=== PATIENT | male | born 1950 | race Caucasian/White ===

== ENCOUNTER 2020-06-08 10:02 | Day surgery (SDC) | payer MEDICARE, BC, SELFPAY ==
[2020-06-06 11:11] VITALS: BMI 33.7
[2020-06-08 10:40] VITALS: BP 139/99; PULSE 87; RESP 18; TEMP 36.2; O2SAT 95
[2020-06-08] MEDS: sodium chloride 0.9% 1,000 ML 30 ML IV (10:49)
[2020-06-08 10:55] LABS: Glucose Point of Care 126 mg/dL (70-110)
--- NOTE | 2020-06-08 11:37 | ANES.PREANE2 ---
Pre-Anesthetic Assessment Pre-Anesthetic Assessment: Height/Weight: Height 1.78 m Weight 106.594 kg Temp Pulse Resp BP Pulse Ox 97.2 F L 87 18 139/99 95 06/08/20 10:40 06/08/20 10:40 06/08/20 10:40 06/08/20 10:40 06/08/20 10:40 Preop Diagnosis: Screening colonoscopy Proposed Procedure: Operation Date: 06/08/20 11:45 Proposed Procedures p Colonoscopy 69819/Z86.010(Not Applicable) - Kamran Qureshi MD Was Beta Rachana taken within 24 hours: N/A Last intake: Intake Last Liquid Date 06/07/20 Last Liquid Time 23:00 Last Solid Date 06/06/20 Last Solid Time 10:00 Social: Social History: No alcohol and No tobacco Exam: Pre-Anes Outpt Exam: alert, oriented x 3, clear to auscultation bilaterally and regular rate & rhythm Airway: Submandibular: WNL Cervical ROM: WNL MP: 1 Pulmonary: Pulmonary: None reported CV/HEM: CV/HEM: HTN : : None reported Hepatic: Hepatic: None reported GI: GI: GERD Metabolic: Metabolic: DM Musc/skel: Musc/skel: None reported Neuropsych: Neuropsych: None reported Anesthetic Plan: ASA status: 2 Anesthesia: MAC Meds/Allergies Current Medications: Current Medications Generic Name Dose Route Start Last Admin Trade Name Freq PRN Reason Stop Dose Admin Sodium Chloride 1,000 mls @ 30 ml s/hr 06/08/20 10:30 06/08/20 10:49 Sodium Chloride 0.9% IV 06/09/20 10:29 30 mls/hr .Q24H JOANNA Administration PFSH Anesthesia PFSH: Medical History (Updated 05/05/20 @ 16:30 by Kamran Qureshi MD) BPH (benign prostatic hyperplasia) Diabetes History of colon polyps History of malignant neoplasm of skin melanoma Osteoarthritis Peptic disease Seborrheic keratosis Surgical History History of appendectomy History of colonoscopy with polypectomy History of partial colectomy (~2007) History of transurethral resection of prostate (~2015) Family History Grandfather CAD (coronary artery disease) Other Cancer Denies family history of Diabetes Anesthesia complication Bleeding disorder Social History Smoking and tobacco status: never smoked Second hand smoke exposure: No Alcohol intake: never Adopted: No Caregiver/support person: Yes Lives independently: Yes Housing: House Marital status: Single Highest education level completed: GED or Equivalent service: No Current occupational status: retired Current occupational exposures/hazards: No Pets and animals: No History of recent travel: No Sexually active: No Current gender identity: Male Data Anesthesia Other Labs: Laboratory Results - last 48 hr 06/08/20 10:49 POC Glucose 126 Cardiac Studies: No Data to Display
--- NOTE | 2020-06-08 11:38 | P.HP_ITS ---
Same Day Surgery H&P Indication for Procedure/HPI DATE OF PROCEDURE: June 08, 2020 CHIEF COMPLAINT/INDICATIONFOR SURGICAL PROCEDURE: I am here for colonoscopy PREOP DIAGNOSIS: Screening colonoscopy PLANNED PROCEDRUE: Operation Date: 06/08/20 11:45 Proposed Procedures p Colonoscopy 82001/Z86.010(Not Applicable) - Kamran Qureshi MD This is a pleasant 70 years old gentleman presented to my office before a month or so to discuss colonoscopy as he had per his description sigmoid colon resection for a large polyp that was turned out to be noncancerous. ROS All systems have been reviewed negative except as per the above or per problem list Medications/Allergies* Home Medications Medication Instructions Recorded Confirmed Type metformin 500 mg tablet 500 mg PO BEDTIME 05/05/20 06/08/20 History pantoprazole 40 mg tablet,delayed 40 mg PO DAILY PRN 05/05/20 06/06/20 History release Allergies/Adverse Reactions Allergy/AdvReac Type Severity Reaction Status Date / Time erythromycin base Allergy Severe ALGY-Redness Verified 06/08/20 11:39 of Skin Current Medications: Generic Name Dose Route Start Last Admin Trade Name Freq PRN Reason Stop Dose Admin Sodium Chloride 1,000 mls @ 30 mls/hr 06/08/20 10:30 06/08/20 10:49 Sodium Chloride 0.9% IV 06/09/20 10:29 30 mls/hr .Q24H JOANNA Administration Pertinent History/Comorbid Conditions* Medical History (Updated 05/05/20 @ 16:30 by Kamran Qureshi MD) BPH (benign prostatic hyperplasia) Diabetes History of colon polyps History of malignant neoplasm of skin melanoma Osteoarthritis Peptic disease Seborrheic keratosis Surgical History (Updated 05/05/20 @ 16:28 by Kamran Qureshi MD) History of appendectomy History of colonoscopy with polypectomy History of partial colectomy (~2007) History of transurethral resection of prostate (~2015) Family History (Updated 05/05/20 @ 13:20 by Carmela Alexis LPN) CAD (coronary artery disease) Grandfather Cancer Denies family history of Diabetes Anesthesia complication Bleeding disorder Social History Smoking and tobacco status: never smoked Second hand smoke exposure: No Alcohol intake: never Adopted: No Caregiver/support person: Yes Lives independently: Yes Housing: House Marital status: Single Highest education level completed: GED or Equivalent service: No Current occupational status: retired Current occupational exposures/hazards: No Pets and animals: No History of recent travel: No Sexually active: No Current gender identity: Male Pertinent Exam Findings alert, oriented x 3, clear to auscultation bilaterally, regular rate & rhythm and procedure specific exam findings (Abdominal examination nontender nondistended soft, previous mid midline scar) Recommendations Surgery/Procedure today (Screening colonoscopy and informed consent per chart) Coding Level of Care Code Acute Rfid Analyst for Renetta Newman
[2020-06-08 12:05] VITALS: BP 154/91; PULSE 72; RESP 16; TEMP 36.5; O2SAT 93
[2020-06-08 12:19] VITALS: BP 133/98; PULSE 71; RESP 18; O2SAT 91
== END 2020-06-08 12:35 | disposition home or self-care (01) ==
PROVIDERS: PCP Nurse Practitioner; Visit Provider Surgery
PROC: 0DJD8ZZ Inspection of Lower Intestinal Tract, Via Natural or Artificial Opening Endoscopic (ICD-10-PCS; CPT 45378; principal; 2020-06-08 11:45)
DX: Z12.11 Encounter for screening for malignant neoplasm of colon (principal); Z86.010 Personal history of colon polyps; D12.8 Benign neoplasm of rectum; K62.0 Anal polyp; K57.30 Diverticulosis of large intestine without perforation or abscess without bleeding; I10 Essential (primary) hypertension; K21.9 Gastro-esophageal reflux disease without esophagitis; E11.9 Type 2 diabetes mellitus without complications; N40.0 Benign prostatic hyperplasia without lower urinary tract symptoms
CPT/HCPCS: 12345; 36416; 45380; 45385; 82962; 88304; 88305; J0171; J2704; J7030

== ENCOUNTER 2021-08-10 09:43 | Outpatient (CLI) | payer MEDICARE, BC, SELFPAY ==
--- NOTE | 2021-08-10 09:52 | USCV_ITS ---
Donavan Gomez Age: 71 Gender: M : 1950 Exam Date: 08/10/2021 09:58 Ordering Phys: Sharon Dotson APN Technologist: Zeinab Rivas [place]am Location[place] [facility] [place]: AAA Screening HISTORY: Diameter (cm) AP x Transverse x Length Velocity (cm/s) Waveform Prox Aorta: 2.43 x 2.39 x 73.50 Mid Aorta: 2.46 x 2.58 x 59.00 Distal Aorta: 1.95 x 2.60 x 61.50 Right Iliac Prox: 0.93 x 1.19 x 119.50 Left Iliac Prox: 0.79 x 1.06 x 79.30 Stent Prox Landing x x Aneurysmal Sac Max x x Lt Lat Sac Dim Rt Lat Sac Dim Stent Dist Landing x x Right Iliac Stent x x Left Iliac Stent x x Right Renal Art Left Renal Art FINDINGS: No evidence of abdominal aortic or bilateral iliac aneurysm. Normal Doppler flow velocites noted throught the aorta and common iliac arteries. CONCLUSIONS No evidence of abdominal aortic or bilateral iliac aneurysm. Dr. Rea Stevenson DO (Electronically Signed) Final Date: 10 August 2021 15:20 S
== END 2021-08-10 09:44 | disposition home or self-care (01) ==
LOC: US 09:45
PROVIDERS: PCP Nurse Practitioner; Visit Provider Nurse Practitioner
DX: Z13.6 Encounter for screening for cardiovascular disorders (principal)
CPT/HCPCS: 76706

== ENCOUNTER → 2024-04-09 13:38 | Outpatient (BNVA) | payer MEDICARE, BC, SELFPAY | PROVIDERS: PCP Nurse Practitioner Family; Visit Provider Nurse Practitioner Family | DX: L82.1 Other seborrheic keratosis (principal); D48.5 Neoplasm of uncertain behavior of skin; L57.0 Actinic keratosis; L82.0 Inflamed seborrheic keratosis; S50.862A Insect bite (nonvenomous) of left forearm, initial encounter; X58.XXXA Exposure to other specified factors, initial encounter; D22.5 Melanocytic nevi of trunk; L91.8 Other hypertrophic disorders of the skin; Z85.820 Personal history of malignant melanoma of skin; Z85.828 Personal history of other malignant neoplasm of skin | CPT/HCPCS: 10120; 11102; 17000; 17110; 99203 ==

== ENCOUNTER → 2024-10-12 13:19 | Outpatient (BNVA) | payer MEDICARE, SELFPAY | PROVIDERS: PCP Nurse Practitioner Family; Visit Provider Nurse Practitioner Family | DX: D18.01 Hemangioma of skin and subcutaneous tissue (principal); L82.1 Other seborrheic keratosis; Z85.820 Personal history of malignant melanoma of skin; Z85.828 Personal history of other malignant neoplasm of skin; D48.5 Neoplasm of uncertain behavior of skin; L57.0 Actinic keratosis | CPT/HCPCS: 11104; 17000; 99213 ==

== ENCOUNTER → 2025-04-12 12:55 | Outpatient (BNVA) | payer MEDICARE, SELFPAY | PROVIDERS: PCP Nurse Practitioner Family; Visit Provider Nurse Practitioner Family | DX: D22.5 Melanocytic nevi of trunk (principal); L82.1 Other seborrheic keratosis; L91.8 Other hypertrophic disorders of the skin; Z85.820 Personal history of malignant melanoma of skin; Z08 Encounter for follow-up examination after completed treatment for malignant neoplasm; Z85.828 Personal history of other malignant neoplasm of skin; L57.0 Actinic keratosis | CPT/HCPCS: 17000; 99213 ==